=== PATIENT | male | born 1995 | race Caucasian/White ===

== ENCOUNTER 2017-07-31 15:51 | Emergency (ER) | payer BC ==
--- NOTE | 2017-07-31 17:08 | RAD ---
INDICATION: Cough. Congestion COMPARISON: None TECHNIQUE: PA and lateral dual-energy views were obtained. FINDINGS: Bones/Soft Tissues: There are no acute bony findings. Cardiomediastinal: The cardiomediastinal silhouette is normal. Lungs: There are no infiltrates. Pleura: There are no pleural effusions. Other: None IMPRESSION: NORMAL CHEST.
[2017-07-31 19:14] VITALS: BP 100/65
--- NOTE | 2017-07-31 20:02 | ED ---
Respiratory - HPI Summary HPI Summary: Patient is an otherwise healthy 22-year-old male who presents to the ED from [facility] with cough, congestion, fever. He states he went to the [facility] and they were unable to perform an x-ray as the x-ray tech was not available. She arrives to the ED with chief complaint of cough 4 days, but also endorses fever at 100.7 this morning which resolved after Tylenol. Denies any fevers, sweats, chills at this time. Denies any abdominal pain, nausea, vomiting, headache, dizziness or other weakness. He denies any known sick contacts specifically the flu. He does not take any medications and has not taken any other medications [id number]. Denies any urinary symptoms. Symptoms are aggravated by nothing and relieved with nothing. He is not bringing anything up. - History of Current Complaint Chief Complaint: EDUpperRespComplaint Stated Complaint: FEVER/COUGH Time Seen by Provider: 07/31/17 16:01 Hx Obtained From: Patient Onset/Duration: Sudden Onset Timing: Constant Initial Severity: Moderate Current Severity: Moderate Pain Intensity: 3 Character: Cough (Nonproductive), Dyspnea at Rest Sputum Amount: None Sputum Color: Clear Aggravating Factor(s): URI Associated Signs and Symptoms: URI, Chest Pain with Cough, Pleuritic Chest Pain - Risk Factors Status Asthmaticus Risk Factors: Negative Pulmonary Embolism Risk Factors: Negative Cardiac Risk Factors: Negative Pseudomonas Risk Factors: Negative Tuberculosis Risk Factors: Negative - Allergy/Home Medications Allergies/Adverse Reactions: Allergies Allergy/AdvReac Type Severity Reaction Status Date / Time No Known Allergies Allergy Verified 07/31/17 15:59 PMH/Surg Hx/FS Hx/Imm Hx Previously Healthy: Yes - Immunization History Hx Pertussis Vaccination: No Immunizations Up to Date: Unable to Obtain/Confirm Infectious Disease History: No Infectious Disease History: Denies: Traveled Outside the [place] in Last 30 Days - Social History Occupation: Employed Full-time Lives: With Family Alcohol Use: Weekly Hx Substance Use: Yes Substance Use Type: Reports: Marijuana Smoking Status (MU): Never Smoked Tobacco Review of Systems Constitutional: Negative Negative: Fever, Chills, Fatigue Eyes: Negative ENT: Negative Cardiovascular: Negative Positive: Shortness Of Breath, Cough Gastrointestinal: Negative Positive: no symptoms reported, see HPI Musculoskeletal: Negative Psychological: Normal All Other Systems Reviewed And Are Negative: Yes Physical Exam Triage Information Reviewed: Yes Vital Signs On Initial Exam: Initial Vitals Temp Pulse Resp BP Pulse Ox 98.1 F 98 17 106/69 97 07/31/17 15:56 07/31/17 15:56 07/31/17 15:56 07/31/17 15:56 07/31/17 15:56 Vital Signs Reviewed: Yes Appearance: Positive: Well-Appearing, Well-Nourished Skin: Positive: Warm, Skin Color Reflects Adequate Perfusion Head/Face: Positive: Normal Head/Face Inspection Eyes: Positive: EOMI, STACY, Conjunctiva Clear Neck: Positive: Supple, Nontender, No Lymphadenopathy Respiratory/Lung Sounds: Positive: Rhonchi - Bilateral lower lung bases Cardiovascular: Positive: Normal, RRR, Pulses are Symmetrical in both Upper and Lower Extremities Abdomen Description: Positive: Nontender, No Organomegaly Neurological: Positive: Sensory/Motor Intact, Alert, Oriented to Person Place, Time, Speech Normal Psychiatric: Positive: Normal, Affect/Mood Appropriate AVPU Assessment: Alert Diagnostics - Vital Signs Vital Signs Temp Pulse Resp BP Pulse Ox 07/31/17 19:13 99.7 F 104 20 100/65 99 07/31/17 15:56 98.1 F 98 17 106/69 97 - Laboratory Lab Statement: Any lab studies that have been ordered have been reviewed, and results considered in the medical decision making process. Disposition - Course Course Of Treatment: Course of treatment the patient was evaluated for possible bronchitis versus upper respiratory infection versus pneumonia. Chest x-ray obtained and negative for any acute cardiopulmonary disease. Vital signs are stable and he is afebrile with a normal BP. Lungs were rhonchorous in both lung bases, and patient remains at a severe cough on exam. I have advised and given him a Medrol Dosepak, short course of azithromycin and an albuterol inhaler for accompanying shortness of breath. He is okay with this plan and discharged. He will also picking tech Robitussin and I have advised that humidifier in the home will help. He will return if any symptoms become worse or change. - Diagnoses Provider Diagnoses: Acute bronchitis Discharge - Discharge Plan Condition: Stable Disposition: HOME Prescriptions: Albuterol HFA INHALER* [Ventolin HFA Inhaler*] 1 puff INH Q6H PRN #1 mdi PRN Reason: Shortness Of Breath Azithromyxin ALFREDO (NF) [Z-Alfredo (Zithromax) 250 mg tabs #6] 2 tab PO .TODAY, THEN 1 DAILY #6 tab methylPREDNISolone [Medrol Dosepak 4 MG*] 4 mg PO .SEE ALFREDO INSTRUCTION #1 packet Patient Education Materials: Acute Bronchitis (ED) Forms: *School Release Referrals: [facility] [Primary Care Provider] - Additional Instructions: Tylenol and ibuprofen for any fevers sweats or chills Rest as much as possible He may take [id number] Robitussin for relief of cough Medrol Dosepak as prescribed Albuterol inhaler for any shortness of breath Azithromycin as prescribed, start today
== END 2017-07-31 19:14 | disposition home or self-care (01) ==
LOC: ED 15:51
DX: J20.9 Acute bronchitis, unspecified (principal); J06.9 Acute upper respiratory infection, unspecified; R07.9 Chest pain, unspecified; R05 Cough; R06.02 Shortness of breath
CPT/HCPCS: 71046; 99282